=== PATIENT | female | born 1955 | race Two or more races ===

== ENCOUNTER → 2017-05-14 | Outpatient (CLI) | payer BC ==
--- NOTE | 2017-05-14 11:44 | REPMRS ---
Patient History The patient states she had a clinical breast exam in 05/15 Patient is postmenopausal. Family history of endometrial cancer in sister at age 30, endometrial cancer in sister at age 32, and breast cancer in maternal aunt at age 60. Benign core biopsy of the left breast. Digital Woman Screen Mammo: May 14, 2017 - Exam #: [id number] Bilateral CC and MLO view(s) were taken. Technologist: Cristina Mena, Technologist Prior study comparison: May 13, 2016, digital woman screen mammo performed at [facility] [facility]. May 11, 2015, digital woman screen mammo performed at [facility]. FINDINGS: There are scattered fibroglandular densities. There has been no change in the appearance of the mammogram from the prior studies. There is a mild amount of residual fibroglandular tissue which is fairly symmetric. There is no interval development of dominant mass, architectural distortion, or clustered microcalcification suggestive of malignancy. ASSESSMENT: BI-RADS/ACR category 1 mammogram. Negative. Recommendation Routine screening mammogram in 1 year (for women over age 40). This mammogram was interpreted with the aid of an FDA-approved computer-aided dectection system. Electronically Signed By: Stephan Gallo MD 05/14/17 [id number]
== END ==
LOC: M WHC 10:11
PROVIDERS: ATTEND Family Medicine
DX: Z12.31 Encounter for screening mammogram for malignant neoplasm of breast (principal)

== ENCOUNTER → 2017-05-14 | Outpatient (REF) | payer BC | LOC: M SFHCWAGY 10:49 | PROVIDERS: ATTEND Nurse Practitioner Family | DX: Z12.4 Encounter for screening for malignant neoplasm of cervix (principal) ==